=== PATIENT | male | born 1940 | race Two or more races ===

== ENCOUNTER 2019-07-13 05:25 | Day surgery (SDC) | payer MEDICARE ==
[2019-07-12 12:08] LABS: HEMATOCRIT 41.7 % (42.0-54.0); HEMOGLOBIN 13.2 g/dL (13.5-17.5); MCH 25.9 pg (26.0-34.0); MCHC 31.7 g/dL (31.0-37.0); MCV 81.8 fL (80.0-100.0); MEAN PLATELET VOLUME 9.2 fL (7.4-10.4); RBC 5.1 10x6/uL (4.20-6.10); RDW 15.9 % (11.5-14.5); WBC 9.5 10x3/uL (4.8-10.8)
[~2019-07-13] VITALS: Ht 177.8 cm; Wt 83.9 kg
[2019-07-13 05:52] VITALS: BP 126/71; Ht 177.8 cm; Wt 83.9 kg
--- NOTE | 2019-07-13 11:07 | NUR ---
[address] MENDOZA. PROCEDURE FINDINGS DISCUSSED WITH PATIENT. PT INFORMED CHEST XRAY WITH A NOTED ABNORMALITY & HE WILL BE CALLED WITH AN APPT. TIME FOR A CT. Carroll RAI R.N.
--- NOTE | 2019-07-13 12:24 | NUR ---
1130 DRANK ANOTHER GLASS OF WATER. NO COMPLAINTS OF NAUSEA. UP TO BATHROOM VOIDED URINE WITH ENOUGH FORCE FOR MANY BUBBLES IN WATER. SOME BLOOD NOTED BUT NO CLOTS. BACK TO BED. IV DC'ED WITH CATH INTACT & 100ML LTC. PRESSURE TO IV SITE. NO BLEEDING NOTED. DRESSING. Carroll RAI R.N. 1145 DRESSED. AWAKE & ALERT. RUNNY NOSE & SNEEZED A COUPLE OF TIMES. GIVEN DISCHARGE INFORMATION INCLUDING: MED REC, RTC APPT., [facility] D/C INSTRUCTIONS, & POST CYSTOSCOPY & POST PROSTATE BIOPSY D/C INSTRUCTIONS. PT VOICED UNDERSTANDING. TO PRIVATE CAR PER WHEELCHAIR BY STAFF. HOME WITH Smiley HANSON, DAUGHTER IN LAW. Carroll RAI R.N.
--- NOTE | 2019-07-13 13:17 | OP ---
PATIENT NAME: ALICIA HANSON MEDICAL RECORD: [id number] :41 LOCATION:D.OPS ADMISSION DATE: SURGEON: WALDEMAR MENDOZA MD DATE OF OPERATION: 07/13/2019 SURGEON: Waldemar Mendoza MD ANESTHESIA: TIVA by CATRINA Alarcon CRNA DIAGNOSIS: Elevated PSA of 5.3, bladder outlet obstruction. PROCEDURE: Cystoscopy, transrectal ultrasound and prostate biopsy. SPECIMENS: Prostate biopsy cores. FINDINGS: On cystoscopy, long obstructive lateral lobes with no median lobe. Ureteral orifices are difficult to see. There are no bladder tumors. 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 SPECIMENS: Prostate biopsy cores. BLOOD LOSS: None. CLINICAL HISTORY: This is a 78-year-old male, who was referred with an elevated PSA of 5.3. The PSA level was less than 4 last year. It had been elevated previously and Dr. Waldron performed a TURP 4 years ago. No cancer was found on the specimens of the TURP. He has some obstructive voiding symptoms. He comes today for cystoscopy and a prostate biopsy. He is not allergic to any medications. 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 It should be noted that on his preop chest x-ray, an indeterminate thin-walled cavitary lesion was seen in the right middle lobe measuring approximately 3 cm in size. I have ordered a CT scan of the chest without contrast to further define this lesion. DESCRIPTION OF PROCEDURE: The patient was given IV sedation. He was placed into lithotomy position and prepped and draped. A 17-Occitan cystoscope with 30-degree lens was used for visualization. The patient's previous TURP was notable only for an asymmetry in the size of the lateral lobes. However, the lateral lobes are still obstructive. The median lobe has been removed. No bladder tumors were seen. The bladder was moderately trabeculated. The bladder was then emptied through the cystoscope sheath and then the scope was removed. We then introduced the transrectal ultrasound probe. The prostate size measurement was obtained at 71 grams. Sextant biopsies were obtained with at least 3 cores from each sextant. Once all the specimens were obtained, then we finished the procedure. The patient was sent back to the preoperative holding area. I will see him back in followup in 1 weeks' time to review the pathology results with him. TRANSINT:[id number] Voice Confirmation ID: [id number] DOCUMENT ID: [id number] OPERATIVE REPORT [id number] ALICIA HANSON ROBERT S MD at 1317 CC: [id number] DICTATION DATE: 07/13/19 0934 UNDERWATER ROBOTICIST: 07/13/19 1303 [facility] 07/13/19 [place] [id number]
== END 2019-07-13 11:45 | disposition home or self-care (01) ==
LOC: D.OPS 05:25 → D.PAN 07:30 → D.OPS 07:30 → D.PAN 08:05 → D.OPS 08:55
PROVIDERS: Anesthesiology; ATTEND Urology
DX: N32.0 Bladder-neck obstruction (principal); R97.20 Elevated prostate specific antigen [PSA]; E11.9 Type 2 diabetes mellitus without complications; D29.1 Benign neoplasm of prostate; N52.9 Male erectile dysfunction, unspecified